=== PATIENT | female | born 2000 | race American Indian/Alaskan Native ===

== ENCOUNTER 2021-10-24 12:08 | Emergency (ER) | payer MEDICAID ==
[2021-10-24 12:29] VITALS: BP 118/59
[2021-10-24] MEDS ORDERED: DEXAMETHASONE 10 MG/ML VIAL PO STA (12:42)
[2021-10-24] MEDS ORDERED: AMOX/CLAV 875 MG/125 MG TABLET PO STA (12:43)
--- NOTE | 2021-10-24 12:46 | ED Physician Documentation ---
History of Present Illness - Stated complaint Stated Complaint: THROAT PX - Chief complaint Chief Complaint: Heent - Additonal information Additional information: 21-year-old female presents to the emergency department for evaluation of 4 to 5 days sore throat mostly on the left side. She has been having subjective fevers. Over the last 24 hours she has found increasing difficulty swallowing. No dysphonia. She reports that she tested positive for COVID on 05 October and quarantined for 10 days. No history of similar in the past. No new kissing partners. Denies nausea vomiting chest pain or shortness of air. Review of Systems Constitutional: reports: Fever, Myalgias Eyes: reports: Reviewed and negative Ears: reports: Reviewed and negative Nose: reports: Reviewed and negative Throat: reports: Sore throat Cardiac: reports: Reviewed and negative Respiratory: reports: Reviewed and negative GI: reports: Reviewed and negative : reports: Reviewed and negative Skin: reports: Reviewed and negative PD PAST MEDICAL HISTORY - Present Medications Home Medications: Ambulatory Orders Medication Instructions Recorded Confirmed Amox/Clav 875/125 [Augmentin] 1 each PO Q12H 14 Days #28 tablet 10/24/21 - Allergies Allergies/Adverse Reactions: Allergies Allergy/AdvReac Type Severity Reaction Status Date / Time No Known Drug Allergies Allergy Verified 10/24/21 12:29 PD ED PE EXPANDED - General General: Alert - HEENT HEENT: Atraumatic, PERRL, Moist mucous membranes, Pharyngeal erythema, Swollen tonsils, Tonsillar exudate, [employer] (Mild asymmetry of the left posterior oropharynx. Uvula is mildly deviated to the left. Left tonsillar bed is erythematous with a moderate amount of purulent exudate.) - Neck Neck: Supple w/out meningeal sx, Adenopathy - Cardiac Cardiac: Regular Rate, Radial strong equal, Pedal strong equal, Cap refill < 2 sec. No: Murmur Present - Respiratory Respiratory: Clear to ausultation constance. No: Distress, Labored - Abdomen Abdomen: Normal Bowel sounds. No: Tender to palpation - Extremities Extremities: Normal. No: Deformity, Tenderness - GCS Eye Opening: Spontaneous Motor: Obeys Commands Verbal: Oriented Total: 15 Results - Vitals Vitals: Vital Signs - 24 hr 10/24/21 12:24 Temperature 36.6 C Heart Rate 73 Respiratory 16 Rate Blood Pressure 118/59 L O2 Saturation 99 Oxygen O2 Source Room air - Labs Labs: Laboratory Tests 10/24/21 12:56 Group A Strep Rapid POSITIVE H PD MEDICAL DECISION MAKING - ED course Complexity details: reviewed results, re-evaluated patient, considered differential, d/w patient ED course: 21-year-old female presents emergency department for evaluation of 4 days sore throat with subjective fevers. On exam she appears to have mild or early peritonsillar abscess as evidenced by left-sided uvular deviation, mild posterior oropharynx erythema and enlarged left tonsillar bed with exudate. Rapid strep is positive. Patient is given 20 mg of Decadron here in the emergency department and will be discharged with a 14-day course of Augmentin. Emergent return precautions are discussed for worsening symptoms or airway compromise. Departure - Departure Disposition: Home, Self Care Clinical Impression: Peritonsillar abscess, Acute streptococcal pharyngitis Condition: Stable Record reviewed to determine appropriate education?: Yes Instructions: Peritonsillar Abscess Prescriptions: Amox/Clav 875/125 [Augmentin] 1 each PO Q12H 14 Days #28 tablet Comments: Belle you have a condition called a peritonsillar abscess. This is where a pocket of fluid develops due to infection in the tonsils. We have given you a dose of steroid here in the emergency department that should help with pain swelling and inflammation over the next 2 to 3 days. However it is important you fill the prescription for the antibiotics and begin taking twice daily for the next 14 days. With the antibiotics I would expect reduced pain, swelling and fevers over the next 3 to 4 days. If despite the antibiotics you are having worsening symptoms, persistence of fevers, inability to swallow, turn your neck or speak normally then please return immediately to the ER for second evaluation. [facility] in [place]. Discharge Date/Time: 10/24/21 13:04
[2021-10-24 13:19] LABS: RAPID STREP SCREEN POSITIVE (Negative)
== END 2021-10-24 13:04 | disposition home or self-care (01) ==
LOC: ED 12:08
DX: J36 Peritonsillar abscess (principal); J02.0 Streptococcal pharyngitis
CPT/HCPCS: 87430; 99282; 99283; A9270